=== PATIENT | male | born 1950 | race Caucasian/White ===

== ENCOUNTER → 2022-10-04 10:09 | Outpatient (BNVA) | payer MEDICARE, OTHER, SELFPAY | PROVIDERS: Visit Provider Internal Medicine Cardiovascular Disease | DX: Z86.79 Personal history of other diseases of the circulatory system (principal); N18.9 Chronic kidney disease, unspecified; Z98.890 Other specified postprocedural states; Z95.2 Presence of prosthetic heart valve; E03.9 Hypothyroidism, unspecified; I25.10 Atherosclerotic heart disease of native coronary artery without angina pectoris; I50.9 Heart failure, unspecified; E66.9 Obesity, unspecified; G47.30 Sleep apnea, unspecified; Z95.5 Presence of coronary angioplasty implant and graft; E78.5 Hyperlipidemia, unspecified; E11.22 Type 2 diabetes mellitus with diabetic chronic kidney disease; Z68.41 Body mass index [BMI] 40.0-44.9, adult; Z79.4 Long term (current) use of insulin | CPT/HCPCS: 99204 ==

== ENCOUNTER → 2022-10-10 14:03 | Outpatient (BNVA) | payer MEDICARE, OTHER, SELFPAY | PROVIDERS: Referring Provider Family Medicine; Visit Provider Internal Medicine | DX: E11.22 Type 2 diabetes mellitus with diabetic chronic kidney disease (principal); N18.30 Chronic kidney disease, stage 3 unspecified; E11.40 Type 2 diabetes mellitus with diabetic neuropathy, unspecified; I50.9 Heart failure, unspecified; Z79.4 Long term (current) use of insulin; Z79.84 Long term (current) use of oral hypoglycemic drugs; Z79.890 Hormone replacement therapy | CPT/HCPCS: 99204 ==

== ENCOUNTER 2023-01-17 09:39 | Outpatient (CLI) | payer MEDICARE, OTHER, SELFPAY ==
--- NOTE | 2023-01-17 10:15 | USCV_ITS ---
Julio C Lewis Age: 72 Gender: M : 1950 Exam Date: 01/17/2023 10:41 Ordering Phys: Sameer Nguyen XX Technologist: Marian Floyd Exam Location: [facility] [place] Indication: CAD BP: 108 / 60 HR: 66 Rhythm: Sinus Technical Quality: Adequate MEASUREMENTS (Male / Female) Normal Values 2D ECHO LV Diastolic Diameter PLAX 5.2 cm 4.2 - 5.9 / 3.9 - 5.3 cm LV Systolic Diameter PLAX 2.8 cm IVS Diastolic Thickness 1.9 cm 0.6 - 1.0 / 0.6 - 0.9 cm IVS Systolic Thickness 2.2 cm LVPW Diastolic Thickness 1.3 cm 0.6 - 1.0 / 0.6 - 0.9 cm LVPW Systolic Thickness 2.1 cm LVOT Diameter 2.1 cm LV Ejection Fraction 2D Teich 77.7 % LV Ejection Fraction MOD 2C 67.1 % LV Ejection Fraction 2C AL 68.1 % LA Diameter 4.4 cm LA Width 2.7 cm LA Height 3.8 cm RA Width 2.9 cm RA Height 5.6 cm Aorta at Sinotubular Diameter 3.4 cm IVC Diameter 1.1 cm M-MODE Aortic Annulus Diameter 4.1 cm LA Ao Ratio MM 1.2 MV E Point Septal Separation 1.4 cm DOPPLER AV Peak Velocity 231.0 cm/s LVOT Peak Velocity 95.0 cm/s AV Area Cont Eq vti 1.4 cm squared AV Area Cont Eq pk 1.4 cm squared MV Peak Velocity 154.0 cm/s MV Area PHT 2.6 cm squared Mitral E to A Ratio 1.0 MV E' Velocity 71.5 cm/s Mitral E to MV E' Ratio 18.7 Mitral E to LV E' Lateral Ratio 17.7 Mitral E to LV E' Septal Ratio 20.1 TR Peak Velocity 178.7 cm/s TR Peak Gradient 12.8 mmHg Right Atrial Pressure 5.0 mmHg Pulmonary Artery Systolic Pressu 17.8 mmHg PV Peak Velocity 132.0 cm/s RV Acceleration Time 0.1 s RV Ejection Time 0.3 s RV AcT/ET 0.4 FINDINGS Left Ventricle Left ventricle is normal size. LV systolic function is normal with EF of 55 to 60%. No regional wall motion abnormalities are seen. Right Ventricle Normal size and function Right Atrium Normal size Left Atrium Normal size Mitral Valve Mild mitral annular calcification is seen. Mild mitral regurgitation. Aortic Valve Aortic valve is thickened. Mild aortic stenosis with aortic valve area of 1.35 cm squared with mean gradient of 11 mmHg. Tricuspid Valve Trace tricuspid regurgitation. Insufficient TR jet to evaluate RVSP. Pulmonic Valve Not well-visualized Pericardium Normal Aorta Normal in size IVC Appears to be normal CONCLUSIONS LV systolic function is normal with EF 55 to 60%. Mild mitral regurgitation Mild aortic stenosis with aortic valve area of 1.35 cm2 with mean gradient of 11mmhg. Trace tricuspid regurgitation No comparison studies are available. Cuate Oswald MD (Electronically Signed) Final Date: 06 February 2023 18:02 S
== END 2023-01-17 09:40 | disposition home or self-care (01) ==
PROVIDERS: PCP Family Medicine; Visit Provider Family Medicine
DX: I50.9 Heart failure, unspecified (principal); I08.3 Combined rheumatic disorders of mitral, aortic and tricuspid valves
CPT/HCPCS: 93306

== ENCOUNTER → 2023-03-07 10:32 | Outpatient (BNVA) | payer MEDICARE, OTHER, SELFPAY | PROVIDERS: PCP Family Medicine; Visit Provider Internal Medicine | DX: E11.9 Type 2 diabetes mellitus without complications (principal); E78.5 Hyperlipidemia, unspecified; Z79.4 Long term (current) use of insulin | CPT/HCPCS: 99214 ==